=== PATIENT | female | born 1960 | race Caucasian/White ===

== ENCOUNTER → 2020-04-25 15:27 | Outpatient (CLI) | payer MEDICAID, SELFPAY ==
[2020-04-25 09:27] VITALS: BMI 21.9
--- NOTE | 2020-04-25 09:30 | ASPSI_PTH ---
PATIENT: KENDRA MATA LOC: [facility] U#:[id number] AGE/SX: 64/F ROOM: RE04/25/[address]: Dr. Corby Alba MD : 1960 BED: DIS: SPEC #: [id number] RECD: 04/25/20 15:24 STATUS: SUMITHomar REPawan #: [id number] KAREN: 04/25/20 09:[address]: Corby Alba DEPT: CYTOLOGY RECD BY: Carlos Valdez ENTERED: 04/26/20 09:06 SP TYPE: DAWIT ADAMS DR: LUIS ALFREDO Byers Tissues: A - Thyroid gland, NOS B - Thyroid gland, NOS Procedures: Surgery Specimen Level IV Cytospin Fluid Cytology Other HEADER OPERATION: Ultrasound-guided fine needle aspiration right thyroid PRE-OP DIAGNOSIS: Nontoxic multinodular goiter TISSUE SUBMITTED: A - FNA right thyroid fluid for cytology, B - FNA right thyroid slides x12 DIAGNOSIS CYTOLOGY A. Fine needle aspiration, right thyroid nodule (cytospin and cell block): Macrophages consistent with benign cyst contents. B. Fine needle aspiration, right thyroid nodule (smears): Adequate for evaluation. Negative, consistent with benign follicular/colloid nodule with cystic change. AM:lucina 04/27/20 CYTOLOGY STUDY Slides are reviewed. CYTOLOGY GROSS A - Received is 6 ml of cloudy red fluid labeled with the patient's name and and designated per the requisition as right thyroid. Submitted for cytology preparation including cell block. B - Received are 12 smears labeled with the patient's name and designated per the requisition as right thyroid. Submitted for staining. / lucina 04/26/20 TC:5 CPT: 47613, 17057, 06291
== END ==
PROVIDERS: PCP Physician Assistant; Referring Provider Surgery; Visit Provider Surgery
DX: E04.2 Nontoxic multinodular goiter (principal)
CPT/HCPCS: 88108; 88161; 88305

== ENCOUNTER → 2021-05-28 | Outpatient (CLI) | payer MEDICAID, SELFPAY ==
--- NOTE | 2021-05-28 | FLU_PTH ---
PATIENT: KENDRA MATA LOC: [facility] U#:[id number] AGE/SX: 60/F ROOM: RE05/28/[address]: LUIS ALFREDO Byers : 1960 BED: DIS: 05/28/2021 SPEC #: [id number] RECD: 05/28/21 16:46 STATUS: FARHAT REQ #: [id number] KAREN: 05/28/21 00:[address]: Corby Alba DEPT: CYTOLOGY RECD BY: Padmini Cifuentes ENTERED: 05/29/21 10:51 SP TYPE: Fluid OTHR DR: LUIS ALFREDO Byers Tissues: A - Thyroid gland, NOS B - Thyroid gland, NOS Procedures: Special Stain Group II Surgery Specimen Level IV Cytospin Fluid Cytology Other Comments: @ Ordering doctor for SSII edited from ABDOULAYE to DR.DPEABO Jasso by MADELINE at 05/29/21 1433 @ Ordering doctor for SUIV edited from ABDOULAYE to DR.DPEABO Romero CORREA at 05/29/21 1433 @ Ordering doctor for CYSPIN edited from ABDOULAYE to DR.DPEABO Jasso by MADELINE at 05/29/21 1433 @ Ordering doctor for CYOTHER edited from ABDOULAYE to DR.DPEABO Jasso by MADELINE at 05/29/21 1433 @ Submitting doctor edited from ABDOULAYE to DR.DPEABO Romero CORREA at 05/29/21 1433 HEADER OPERATION: Ultrasound-guided fine needle aspiration of right thyroid PRE-OP DIAGNOSIS: Thyroid nodules TISSUE SUBMITTED: A ? FNA right thyroid fluid, B - FNA right thyroid x 12 slides DIAGNOSIS CYTOLOGY A. Fine needle aspiration, right thyroid nodule (cytospin and cell block): Negative for malignant cells. See comment. B. Fine needle aspiration, right thyroid nodule (smears): Adequate for evaluation. Negative, consistent with benign colloid/follicular nodule. AM:lucina 05/30/2021 COMMENT A. The specimen primarily contains blood and rare macrophages consistent with benign cyst contents. Reference is made to the patient's previous cytology of thyroid ([id number]) with similar diagnosis. CYTOLOGY STUDY Slides are reviewed. CYTOLOGY GROSS A - Received is 35 ml of brown cloudy fluid labeled with the patient's name and and designated per the requisition as right thyroid. Submitted for cytology preparation including cell block. B - Received are 12 smears labeled with the patient's name and designated per the requisition as right thyroid. Submitted for staining. / lucina 05/29/2021 TC:5 CPT: 46641, 70409, 13782
== END | disposition home or self-care (01) ==
LOC: LABSPEC 05-29 09:03
PROVIDERS: PCP Physician Assistant; Visit Provider Physician Assistant
DX: E04.2 Nontoxic multinodular goiter (principal)
CPT/HCPCS: 88108; 88161; 88305; 88313